=== PATIENT | female | born 1985 | race Two or more races ===

== ENCOUNTER 2023-06-21 14:44 | Emergency (ER) | payer MEDICAID ==
[~2023-06-21] VITALS: Ht 165.1 cm; Wt 97.5 kg
[2023-06-21 14:47] VITALS: BP 170/106
[2023-06-21] MEDS ORDERED: CYCL10 PO (16:02)
== END 2023-06-21 16:28 | disposition home or self-care (01) ==
LOC: ER 14:44
DX: G89.29 Other chronic pain (principal); M54.50 Low back pain, unspecified; Z88.6 Allergy status to analgesic agent; Z88.5 Allergy status to narcotic agent; Z98.890 Other specified postprocedural states
CPT/HCPCS: 96372; 99283-25; A9270; J1885